=== PATIENT | female | born 1975 | race Caucasian/White ===

== ENCOUNTER 2019-12-25 14:24 | Outpatient (CLI) | payer OTHER, SELFPAY ==
--- NOTE | ~2019-12-25 | XR_ITS ---
EXAMINATION: XR abdomen/kub 1V EXAM DATE: 12/25/2019 14:47 INDICATION: Abdominal pain. TECHNIQUE: Frontal projection(s) of the abdomen for interpretation. There is no prior study for deven herzog. FINDINGS: There is 5 mm ossific density projecting over the left L3 transverse process, probable lef t UPJ stone. Please clinically correlate. Expected amount of colonic stool. No small bowel dilation. There are no osseous abnormalities identified. IMPRESSION: Probable left UPJ 5 mm stone. Reviewed, dictated and finalized at location A.
== END 2019-12-25 14:25 | disposition home or self-care (01) ==
LOC: ANHIMG 14:32
PROVIDERS: PCP Family Medicine; Visit Provider Physician Assistant Medical
DX: R10.9 Unspecified abdominal pain (principal); R31.9 Hematuria, unspecified
CPT/HCPCS: 74018